=== PATIENT | female | born 1990 | race Hispanic/Latino ===

== ENCOUNTER 2017-05-27 20:52 | Emergency (ER) | payer BC ==
[2017-05-27 22:06] VITALS: BP 119/61; RESP 17; TEMP 98.1
--- NOTE | 2017-05-28 00:23 | ED PDOC ---
HPI: Back Time Seen by Provider: 05/28/17 00:10 Chief Complaint (Nursing): Back Pain Chief Complaint (Provider): low back pain History Per: Patient History/Exam Limitations: no limitations Onset/Duration Of Symptoms: Days (3) Current Symptoms Are (Timing): Still Present Exacerbating Factor(s): Turning, Movement Additional History Per: Patient Additional Complaint(s): 26 y/o female presents with low back pain x 3 days. Patient states she woke up with pain, which is worsened by positional change, movement, sitting and standing. Little improvement with Aleve. Denies numbness/weakness lower extremities, bowel/bladder incontinence, urinary symptoms. Past Medical History Reviewed: Historical Data, Nursing Documentation, Vital Signs Vital Signs: Last Vital Signs Temp 98.1 F 05/27/17 22:02 Pulse 56 L 05/27/17 22:02 Resp 17 05/27/17 22:02 BP 119/61 05/27/17 22:02 Pulse Ox 98 05/27/17 22:02 - Medical History PMH: Asthma - Surgical History Surgical History: Cholecystectomy - Family History Family History: States: No Known Family Hx - Living Arrangements Living Arrangements: Alone - Immunization History Hx Tetanus Toxoid Vaccination: No Hx Influenza Vaccination: No Hx Pneumococcal Vaccination: No - Home Medications Home Medications: Ambulatory Orders Medication Instructions Recorded Cyclobenzaprine [Cyclobenzaprine 10 mg PO BID PRN #14 tab 05/28/17 HCl] Lidocaine 5% [Lidoderm] 1 patch TOP DAILY #7 patch 05/28/17 Naproxen [Naprosyn] 500 mg PO Q12 PRN #20 tablet 05/28/17 - Allergies Allergies/Adverse Reactions: Allergies Allergy/AdvReac Type Severity Reaction Status Date / Time No Known Allergies Allergy Verified 05/27/17 22:02 Review of Systems ROS Statement: Except As Marked, All Systems Reviewed And Found Negative Musculoskeletal: Positive for: Back Pain Physical Exam - Reviewed Nursing Documentation Reviewed: Yes Vital Signs Reviewed: Yes - Physical Exam Appears: Positive for: Well, Non-toxic, No Acute Distress Head Exam: Positive for: ATRAUMATIC, NORMAL INSPECTION, NORMOCEPHALIC Skin: Positive for: Normal Color Eye Exam: Positive for: Normal appearance ENT: Positive for: Normal ENT Inspection Cardiovascular/Chest: Positive for: Regular Rate, Rhythm Respiratory: Positive for: Normal Breath Sounds Gastrointestinal/Abdominal: Positive for: Normal Exam Back: Positive for: Muscle Spasm (bilateral lspine paraspinal tenderness). Negative for: L CVA Tenderness, R CVA Tenderness, Vertebral Tenderness, Decreased ROM Extremity: Positive for: Normal ROM Neurologic/Psych: Positive for: Alert, Oriented. Negative for: Motor/Sensory Deficits - ECG O2 Sat by Pulse Oximetry: 98 - Other Rad ls xray X-Ray: Viewed By Me X-Ray Interpretation: no acute findings - Progress ED Course And Treament: Toradol IM, flexeril PO Patient educated on findings, discharged with rx naproxen, flexeril, lidoderm. Advised rest, ice/warm compresses Follow up PMD 2-3 days. Return precautions given. Disposition - Clinical Impression Clinical Impression: Back pain - Patient ED Disposition Is Patient to be Admitted: No Counseled Patient/Family Regarding: Studies Performed, Diagnosis, Need For Followup, Rx Given - Disposition Disposition: Routine/Home Disposition Time: 01:31 Condition: IMPROVED Prescriptions: Cyclobenzaprine [Cyclobenzaprine HCl] 10 mg PO BID PRN #14 tab PRN Reason: Muscle Spasm Lidocaine 5% [Lidoderm] 1 patch TOP DAILY #7 patch Naproxen [Naprosyn] 500 mg PO Q12 PRN #20 tablet PRN Reason: Pain, Moderate (4-7) Instructions: Low Back Pain (DC) Forms: [facility] (Serbian)
[2017-05-28 01:49] VITALS: PULSE 63; O2SAT 100
--- NOTE | 2017-05-28 09:26 | RAD ---
PROCEDURE: Radiographs of the Lumbar Spine. HISTORY: low back pain COMPARISON: No prior. FINDINGS: BONES: Normal alignment. No listhesis. No fracture. DISC SPACES: Unremarkable. OTHER FINDINGS: Right upper quadrant surgical clips. IMPRESSION: Unremarkable radiographs of the lumbar spine.
== END 2017-05-28 01:40 | disposition home or self-care (01) ==
LOC: EDSEX 20:52 → H.ER 20:52
DX: M54.9 Dorsalgia, unspecified (principal); J45.909 Unspecified asthma, uncomplicated
CPT/HCPCS: 72100; 81025; 96372; 99282; J1885

== ENCOUNTER 2017-05-31 10:26 | Emergency (ER) | payer BC ==
[2017-05-31 10:48] VITALS: BP 114/76; PULSE 68; RESP 18; TEMP 98; O2SAT 98
--- NOTE | 2017-05-31 12:13 | ED PDOC ---
HPI: Back Time Seen by Provider: 05/31/17 11:01 Chief Complaint (Nursing): Back Pain Chief Complaint (Provider): back pain History Per: Patient History/Exam Limitations: no limitations Onset/Duration Of Symptoms: Days (5 days ago) Current Symptoms Are (Timing): Still Present Additional Complaint(s): Patient reports of back pain in the lower back, beginning 5 days ago. Patient started after sleeping on a couch when visiting family, and notes that pain worsens with any type of movement. patient was seen in ED 5 days ago and prescribed with Flexeril/Naproxen/Lidoderm patch with minimal relief. Otherwise : (-) paresthesias, (-) weakness, (-) acute bowel or bladder dysfunction, (-) urinary symptoms, (-) abdominal pain, (-) trauma / injury, (-) heavy lifting, (- ) fever. Past Medical History Reviewed: Historical Data, Nursing Documentation, Vital Signs Vital Signs: Last Vital Signs Temp 98 F 05/31/17 10:45 Pulse 68 05/31/17 10:45 Resp 18 05/31/17 10:45 BP 114/76 05/31/17 10:45 Pulse Ox 98 05/31/17 10:45 - Medical History PMH: Asthma - Surgical History Surgical History: Cholecystectomy - Family History Family History: States: Unknown Family Hx - Social History Current smoker - smoking cessation education provided: No Ex-Smoker (has not smoked in the last 12 months): No Alcohol: None Drugs: Denies - Immunization History Hx Tetanus Toxoid Vaccination: No Hx Influenza Vaccination: No Hx Pneumococcal Vaccination: No - Home Medications Home Medications: Ambulatory Orders Medication Instructions Recorded Cyclobenzaprine [Cyclobenzaprine 10 mg PO BID PRN #14 tab 05/28/17 HCl] Lidocaine 5% [Lidoderm] 1 patch TOP DAILY #7 patch 05/28/17 Naproxen [Naprosyn] 500 mg PO Q12 PRN #20 tablet 05/28/17 Meloxicam [Mobic] 15 mg PO DAILY PRN #30 tab 05/31/17 traMADol [Ultram] 50 mg PO TID PRN #15 tab 05/31/17 - Allergies Allergies/Adverse Reactions: Allergies Allergy/AdvReac Type Severity Reaction Status Date / Time No Known Allergies Allergy Verified 05/27/17 22:02 Review of Systems ROS Statement: Except As Marked, All Systems Reviewed And Found Negative Constitutional: Negative for: Fever Musculoskeletal: Positive for: Back Pain (paralumbar region) Physical Exam - Reviewed Nursing Documentation Reviewed: Yes Vital Signs Reviewed: Yes - Physical Exam Appears: Positive for: Well, In Acute Distress ( Patient is awake, alert, oriented x 3, in mild painful distress. Patient is ambulatory in the ER.) Skin: Positive for: Warm, Dry. Negative for: Cyanosis Eye Exam: Negative for: Other (conjunctival pallor) ENT: Positive for: Other (mucous membranes moist) Neck: Positive for: Normal ((-) tenderness, (-) stiffness, (-) lymphadenopathy.) , Painless ROM, Supple Cardiovascular/Chest: Positive for: Regular Rate, Rhythm ( (-) irregularity; (- ) murmur, (-) gallop.). Negative for: Murmur Respiratory: Positive for: Normal Breath Sounds ((-) rales, (-) rhonchi, (-) wheezes; breath sounds equal bilaterally.). Negative for: Respiratory Distress Pulses-Dorsalis Pedis (L): 2+ Pulses-Dorsalis Pedis (R): 2+ Gastrointestinal/Abdominal: Positive for: Soft. Negative for: Tenderness, Mass (palpable mass) Back: Positive for: Other ((+) paralumbar tenderness, (+) mild spasm, (-) direct bony tenderness, (-) deformity. Straight leg raising (-) bilaterally) Extremity: Positive for: Normal ROM, Other (Distal pulses good bilaterally.). Negative for: Deformity Neurologic/Psych: Positive for: Alert, Oriented, Other (Mental status as above. Intact sensation bilaterally; normal strength in extension of the knees, plantar and dorsiflexion of the toes. DTRs symmetric.) - ECG O2 Sat by Pulse Oximetry: 98 (RA) Pulse Ox Interpretation: Normal Medical Decision Making Medical Decision Making: Previous medical record reviewed; on 05/28 X-ray done of lumbar spine and read normal by the radiologist. Time: 11:26 Initial Plan: --Ultram Diagnosis: low back pain Based on history and exam, plan will be to avoid heavy lifting, pushing or pulling. Continue medications and change naproxen to Mobic. Advised to follow up with primary care physician or referral provided in 1-2 days without fail. Advised to take medication as prescribed. Return to the emergency room at any time for any new or worsening symptoms. Patient states she fully agrees with and understands discharge instructions. States that she agrees with the plan and disposition. Verbalized and repeated discharge instructions and plan. I have given the patient opportunity to ask any additional questions. Disposition - Clinical Impression Clinical Impression: Low back pain - Disposition Referrals: Narendra Robbins III, MD [Staff Provider] - Disposition Time: 12:00 Condition: STABLE Additional Instructions: Thank you for letting us take care of you today. You were treated for low back pain. The emergency medical care you received today was directed at your acute symptoms. If you were prescribed any medication, please fill it and take as directed. It may take several days for your symptoms to resolve. Return to the Emergency Department if your symptoms worsen, do not improve, or if you have any other problems. Please contact your doctor in 2 days for re-evaluation and follow up / or call one of the physicians/clinics you have been referred to that are listed on the Patient Visit Information form that is included in your discharge packet. Bring any paperwork you were given at discharge with you along with any medications you are taking to your follow up visit. Our treatment cannot replace ongoing medical care by a primary care provider (PCP) outside of the emergency department. Thank you for allowing the [facility] team to be part of your care today. Prescriptions: Meloxicam [Mobic] 15 mg PO DAILY PRN #30 tab PRN Reason: Pain, Moderate (4-7) traMADol [Ultram] 50 mg PO TID PRN #15 tab PRN Reason: Pain, Moderate (4-7) Instructions: Low Back Pain in Adults Forms: [employer] (Yi), [facility] ED School/Work Excuse
== END 2017-05-31 11:55 | disposition home or self-care (01) ==
LOC: H.ER 10:26
DX: M54.5 Low back pain (principal); J45.909 Unspecified asthma, uncomplicated

== ENCOUNTER 2017-11-04 03:33 | Emergency (ER) | payer BC ==
[2017-11-04 03:36] VITALS: BMI 29.0
[2017-11-04] MEDS: PROPARACAINE/FLUORESCEIN SOD 100 DROP/5 ML BOTTLE OD STA (04:20)
--- NOTE | 2017-11-04 04:20 | ED PDOC ---
HPI: Eye Injury/Pain Time Seen by Provider: 11/04/17 04:03 Chief Complaint (Nursing): Eye Problem Chief Complaint (Provider): right eye irritation History Per: Patient History/Exam Limitations: no limitations Onset/Duration Of Symptoms: Hrs (1) Current Symptoms Are (Timing): Still Present Associated Symptoms: Pain Additional Complaint(s): 27 y/o female presents for evaluation of right eye pain x 1 hour. Patient states she put her contacts in yesterday morning and fell asleep in them last night. Patient states she slept for approximately 4 hours before being woken up with pain to right eye. Associated photosensitivity. Denies fever, headache , drainage from eye, vision changes. Past Medical History Reviewed: Historical Data, Nursing Documentation, Vital Signs Vital Signs: Last Vital Signs Temp 97.7 F 11/04/17 03:36 Pulse 60 11/04/17 03:36 Resp 20 11/04/17 03:36 BP 117/77 11/04/17 03:36 Pulse Ox 96 11/04/17 03:36 - Medical History PMH: Asthma - Surgical History Surgical History: Cholecystectomy - Family History Family History: States: Unknown Family Hx - Immunization History Hx Tetanus Toxoid Vaccination: No Hx Influenza Vaccination: No Hx Pneumococcal Vaccination: No - Home Medications Home Medications: Ambulatory Orders Medication Instructions Recorded Cyclobenzaprine [Cyclobenzaprine 10 mg PO BID PRN #14 tab 05/28/17 HCl] Lidocaine 5% [Lidoderm] 1 patch TOP DAILY #7 patch 05/28/17 Naproxen [Naprosyn] 500 mg PO Q12 PRN #20 tablet 05/28/17 Meloxicam [Mobic] 15 mg PO DAILY PRN #30 tab 05/31/17 traMADol [Ultram] 50 mg PO TID PRN #15 tab 05/31/17 Ofloxacin Ophth 0.3% [Ocuflox 2 drop OD QID #1 bottle 11/04/17 Ophth 0.3%] - Allergies Allergies/Adverse Reactions: Allergies Allergy/AdvReac Type Severity Reaction Status Date / Time No Known Allergies Allergy Verified 05/27/17 22:02 Review of Systems ROS Statement: Except As Marked, All Systems Reviewed And Found Negative Eyes: Positive for: Pain Physical Exam - Reviewed Nursing Documentation Reviewed: Yes Vital Signs Reviewed: Yes - Physical Exam Appears: Positive for: Well, Non-toxic, No Acute Distress Head Exam: Positive for: ATRAUMATIC, NORMAL INSPECTION, NORMOCEPHALIC Skin: Positive for: Normal Color Eye Exam: Positive for: EOMI, PERRL, Conjunctival injection (right). Negative for: Periorbital swelling, Periorbital tenderness - ECG O2 Sat by Pulse Oximetry: 96 - Progress ED Course And Treament: Two drops flucaine placed in right eye No corneal uptake noted Patient educated on findings, discharged with rx ofloxacin Advised to throw away old contact lenses Visine PRN Follow up with optho in 1-2 days Return precautions given Disposition - Clinical Impression Clinical Impression: Conjunctivitis - Patient ED Disposition Is Patient to be Admitted: No Counseled Patient/Family Regarding: Diagnosis, Need For Followup, Rx Given - Disposition Referrals: Smith Rosa MD [Staff Provider] - Disposition: Routine/Home Disposition Time: 04:50 Condition: STABLE Prescriptions: Ofloxacin Ophth 0.3% [Ocuflox Ophth 0.3%] 2 drop OD QID #1 bottle Instructions: Conjunctivitis (Noninfectious [place]) Forms: [facility] (Chinese)
[2017-11-04] MEDS ORDERED: PROPARACAINE/FLUORESCEIN SOD 100 DROP/5 ML BOTTLE ONE (04:22)
[2017-11-04 05:40] VITALS: BP 118/72; PULSE 72; RESP 16; TEMP 98.1; O2SAT 98
== END 2017-11-04 05:39 | disposition home or self-care (01) ==
LOC: H.ER 03:33
DX: H10.9 Unspecified conjunctivitis (principal)